=== PATIENT | male | born 1980 | race Caucasian/White ===

== ENCOUNTER 2018-08-27 05:26 | Day surgery (SDC) | payer OTHER ==
[~2018-08-27] VITALS: Ht 180.3 cm; Wt 97.1 kg
--- NOTE | ~2018-08-27 | O ---
[facility] [place] [address] OPERATIVE REPORT Name: WENDIEGERONIMO Room #: DEP [facility] M..#: [id number] Admission: 08/27/18 Attend Phys: Misha Ling MD, F Discharge: 08/27/18 Date of : 76 Report #: [id number] THIS REPORT FOR: //name// CC: Salma Faustin DATE OF SERVICE: 08/27/2018 PREOPERATIVE DIAGNOSES: Right inguinal hernia, possible left inguinal hernia. POSTOPERATIVE DIAGNOSIS: Bilateral inguinal hernias. PROCEDURES: 1. Laparoscopic total extraperitoneal repair of a right inguinal hernia with ProGrip mesh. 2. Laparoscopic total extraperitoneal repair of a left inguinal hernia with ProGrip mesh. ANESTHESIA: General endotracheal anesthesia and local anesthetic. ESTIMATED BLOOD LOSS: 5 mL. SPECIMEN: None. COMPLICATIONS: None appreciated. INDICATIONS FOR PROCEDURE: This is a 37-year-old male patient who has a 1-year history of right groin pain and bulging, worse with walking, lifting and coughing. He denies a change in his bowel habits. On exam, he was found to have a large right inguinal bulge. He also had tenderness to palpation with mild bulging of the left groin. He presents now for laparoscopic repair of his right inguinal hernia, possible left inguinal hernia. DESCRIPTION OF PROCEDURE IN DETAIL: After the risks, benefits, and expectations of the operation were discussed in detail with the patient, informed consent was obtained. The patient was identified in the preoperative holding area. He was given IV antibiotics as documented in the chart in line with SCIP metrics. The patient was then taken to the operating room and he was placed in the supine position. SCDs were placed on the patient's bilateral lower extremities and pneumatic compression was initiated. The patient was then given IV sedation and he was intubated without incident. His abdomen was prepped and draped in the standard sterile fashion including his groins and genitalia. A time-out was performed to identify the correct patient and procedure. Local anesthetic was infiltrated into the skin and subcutaneous tissue [address] [address] OPERATIVE REPORT Name: GERONIMO PRESSLEY Room #: DEP [facility] M.R.#: [id number] Admission: 08/27/18 Attend Phys: Misha Ling MD, F Discharge: 08/27/18 Date of : 76 Report #: [id number] infraumbilically where a curvilinear incision was made with a #15 blade scalpel. Dissection was carried down to the left anterior rectus sheath fascia. A small transverse fascial incision was created. The underlying rectus abdominis muscle was swept laterally. The Spacemaker port was then advanced into the preperitoneal space toward the pubic tubercle with gentle sweeping motions. The obturator was removed and the cuff was inflated. The Spacemaker balloon was then inflated under direct visualization. The Spacemaker balloon was then deflated and removed. Carbon dioxide was insufflated into the preperitoneal space to 15 mmHg. A 30-degree angled laparoscope was then inserted. The patient was placed in the Trendelenburg position. A 5 mm ports x 2 were placed under direct visualization after local anesthetic was infiltrated into the skin and subcutaneous tissue and appropriately sized incisions were made. Findings are as noted above. The right inguinal space was explored first. The patient was rotated with his right side up. The peritoneum was then dissected off of the anterior abdominal and pelvic side mcdaniels with blunt dissection and judicious use of electrocautery. The spermatic cord was then isolated and the adjacent hernia sac was dissected out of the indirect defect. The spermatic cord was protected throughout the operation. After fully reducing the hernia sac and ensuring that no other hernias were present, the ProGrip mesh was tailored on the backtable, then rolled and placed within the preperitoneal space. The mesh was unrolled in a scroll down fashion with the adherent side against the anterior abdominal wall with good coverage of the defect and good medialization of the mesh. The patient was then rotated with his left side up. The preperitoneal space was dissected in a similar fashion. The peritoneum was dissected off of the anterior and lateral abdominal and pelvic sidewalls. The peritoneum was followed to an indirect defect. The peritoneum/hernia sac was then dissected out of the indirect hernia defect. The spermatic cord had been isolated and was protected. After fully reducing the content, the ProGrip mesh patch was prepared on the backtable, then rolled and placed within the preperitoneal space through the Spacemaker port. The mesh was unrolled in a scroll down fashion with the adherent side against the abdominal wall with good coverage of the defect and good medialization of the mesh. There was no significant rippling of the mesh on either side. The abdominal cavity was then desufflated and the ports were removed. Interrupted subcuticular 4-0 Monocryl sutures and Dermabond were used to close the skin incisions. The fascial incision was then closed with interrupted 0 PDS [id number] sutures x 2. Local anesthetic was infiltrated subfascially. The skin incisions were then closed with interrupted subcuticular 4-0 Monocryl sutures and Dermabond. The patient tolerated the procedure well. He was [address] [address] OPERATIVE REPORT Name: GERONIMO PRESSLEY [id number] Admission: 08/27/18 Attend Phys: Misha Ling MD, F Discharge: 08/27/18 Date of : 76 Report #: [id number] awakened, extubated, and taken to recovery room in stable condition with no apparent intraoperative complications. <ELECTRONICALLY SIGNED> By: Misha Ling MD, FACS 09/08/18 [id number] Misha Ling MD, FACS /nt
[2018-08-27 09:00] VITALS: BP 124/73
[2018-08-27] MEDS ORDERED: SENNA-S TABLET1 EACH PO (11:42)
[2018-08-27] MEDS ORDERED: NEURONTIN 300300 M1 PO (11:42)
[2018-08-27] MEDS ORDERED: NORCO 5-325 TA1 EACH PO (11:42)
[2018-08-27 11:50] VITALS: BP 124/73
== END 2018-08-27 12:35 | disposition home or self-care (01) ==
LOC: TBA 05:26 → OR 05:26 → TBA 05:27 → OR 09:18
DX: K40.20 Bilateral inguinal hernia, without obstruction or gangrene, not specified as recurrent (principal); K21.9 Gastro-esophageal reflux disease without esophagitis; F17.210 Nicotine dependence, cigarettes, uncomplicated; Z79.899 Other long term (current) drug therapy; Z90.89 Acquired absence of other organs; Z98.818 Other dental procedure status; Z98.890 Other specified postprocedural states; Z79.891 Long term (current) use of opiate analgesic
CPT/HCPCS: 50010; 50101; 50249; 50411; 50555; 50944; 51824; 52265; 52266; 54022; 54118; 54169; 55245; 56525; 56526; 62110; 62900; 70005